=== PATIENT | female | born 1960 | race Caucasian/White ===

== ENCOUNTER 2016-12-27 18:59 | Emergency (ER) | payer BC ==
[2016-12-27 19:14] VITALS: BP 115/67
--- NOTE | 2016-12-27 19:19 | UC ---
Eye Complaint HPI - HPI Summary HPI Summary: 56 YEAR OLD FEMALE PRESENTS WITH RIGHT EYE PAIN/SWELLING/LESION. - History of Current Complaint Chief Complaint: UCEye Stated Complaint: EYE COMPLAINT Time Seen by Provider: 12/27/16 19:18 Hx Obtained From: Patient Onset/Duration: Sudden Onset Timing: Constant Severity Initially: Moderate Severity Currently: Moderate Pain Scale Used: 0-10 Numeric - 5 Location of Injury: Conjunctiva, Eye Lid (upper) - RIGHT UPPER LID GPC Aggravating Factor(s): Light Alleviating Factor(s): Nothing - Allergies/Home Medications Allergies/Adverse Reactions: Allergies Allergy/AdvReac Type Severity Reaction Status Date / Time No Known Allergies Allergy Verified 12/27/16 19:14 Home Medications: Home Medications Propranolol TAB* [Inderal TAB*] 60 mg PO DAILY 12/27/16 [History Confirmed 12/27] PMH/Surg Hx/FS Hx/Imm Hx Previously Healthy: Yes - Surgical History Surgical History: Yes Surgery Procedure, Year, and Place: appy,d-n-c,ectopic - Social History Alcohol Use: Weekly Alcohol Amount: 5 out 0f 7 days Substance Use Type: None Smoking Status (MU): Never Smoked Tobacco - Immunization History Most Recent Influenza Vaccination: none Review of Systems Constitutional: Negative Skin: Negative Eyes: Other - RIGHT EYE GPC ENT: Negative Respiratory: Negative Cardiovascular: Negative Gastrointestinal: Negative Genitourinary: Negative Motor: Negative Neurovascular: Negative Musculoskeletal: Negative Neurological: Negative Psychological: Negative All Other Systems Reviewed And Are Negative: Yes Physical Exam Triage Information Reviewed: Yes Appearance: Well-Appearing Vital Signs: Initial Vital Signs Temp 36.5 C 12/27/16 19:08 Pulse 62 12/27/16 19:08 Resp 16 12/27/16 19:08 BP 115/67 12/27/16 19:08 Pulse Ox 100 12/27/16 19:08 Eyes: Positive: Other: - RIGHT EYE GPC ENT Exam: Normal Dental Exam: Normal Neck exam: Normal Neck: Positive: 1 Respiratory Exam: Normal Cardiovascular Exam: Normal Abdominal Exam: Normal Musculoskeletal Exam: Normal Neurological Exam: Normal Psychological Exam: Normal Skin Exam: Normal Eye Complaint Course/Dx - Differential Dx/Diagnosis Provider Diagnoses: RIGHT EYE GPC Discharge - Discharge Plan Condition: Stable Disposition: HOME Prescriptions: Polymyx/Trimethoprim OPTH* [Polytrim OPHTH*] 1 drop RIGHT EYE Q6H #1 btl Patient Education Materials: Stye (ED), Conjunctivitis (ED) Referrals: Annalisa Bear MD [Medical Doctor] - Vito Amin MD [Medical Doctor] -
== END 2016-12-27 19:30 | disposition home or self-care (01) ==
LOC: UCEAST 18:59
DX: H10 Conjunctivitis (principal)
CPT/HCPCS: 99212; G0463

== ENCOUNTER 2018-09-26 07:41 | Emergency (ER) | payer OTHER ==
--- OUTSIDE RECORDS SUMMARY | 2018-09-26 07:48 | XMS REPORT | Continuity of Care Document ---
:1960 External Reference #:[id number] Author Name Gavino Ovalle Care Team Providers Name Role Phone Annalisa Bear MD Primary Care Physician Unavailable Payers Date Identification Numbers Payment Provider Subscriber Policy Number: [id number] [employer] Student [employer] Herlinda Szymanski Group Number: [id number] [id number] PayID: [id number] [place] [address] Problems Active Problems Provider Date Migraine Maude Cano N.P. 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 ETOH Use Currently consumes 1 - 2 per week alcohol Tobacco Use Start: Unknown Patient has never smoked Recreational Drug Use Denies Drug Use Smoking Status Reviewed: 09/25/18 Patient has never smoked Exercise Type/Frequency Exercises regularly 2 - 4 days weekly Allergies, Adverse Reactions, Alerts Description No Known Drug Allergies Medications Active Medications SIG Qnty Indications Ordering Date Provider Azelastine HCL one drop in each 6ml H10.10 Claire Valera MD 09/25/2018 (Ophthalmic) eye bid prn 0.05% Solution Amitriptyline HCL 1 pill by mouth 30tabs G43.909 iVto Aguilar, 01/12/2018 25mg at bedtime M.D. Tablets Atrovent use 2 sprays in 30units J31.0 Maude Jerome, 07/24/2016 0.03% Solution each nostril two N.P. times daily Fiorinal one to two by 60caps G43.909 Maude Jerome, 03/31/2012 50-325-40mg mouth every 4 to N.P. Capsules 6 hours as needed headache MDD 6 Valacyclovir HCL 1 by mouth every 90tabs Claire Valera MD 500mg day Tablets History Medications Medrol take as directed 21tabs Goran Marcus, 12/10/2017 - 4mg Tablets per dosepak M.D. 01/11/2018 instructions Propranolol HCL ER take one capsule by 30caps G43.90 Goran Marcus, 09/2017 - mouth every morning 9 M.D. 01/12/2018 60mg Caps ER 24HR Propranolol HCL ER take one capsule at 30caps G43.90 Raji Coffman MD 08/2017 - night 9 10/17/2017 80mg Caps ER 24HR Amoxicillin/Clavula 1 tab by mouth 20tabs J01.90 Rosalinda Srinivasan, 2016 - gabriel Potassium twice a day M.D. 03/22/2017 875-125mg Tablets Valacyclovir HCL 2 tabs twice a day 10tabs N76.6 Maude Jerome, 2016 - x 1 day as needed. N.P. 09/24/2018 1gm Tablets start at the first sign of outbreak Propranolol HCL one daily 30tabs G43.90 Maude Cano, 06/11/2016 - 9 N.P. 07/17/2017 60mg Tablets Azithromycin two tabs day one, 6tabs Annalisa Bear, 08/09/2014 - 250mg one daily till gone M.D. 08/19/2014 Tablets Hydroxyzine HCL One tablet PO q 6-8 30tabs August Bah NP 11/22/2013 - hrs prn for 09/12/2014 25mg Tablets pruritis. Medrol (Rey) Per package 21tabs August Bah NP 11/22/2013 - 4mg instructions, for 11/29/2013 Tablets poison oak Fluocinonide Apply a thin layer 30gm 692.6 August Bah NP 11/18/2013 - 0.05% to affected areas 09/12/2014 Cream tid-qid, do not use longer than 7 days. Metaxalone take 1 tablet 3 60tabs 723.1 Maude Cano, 07/05/2013 - 800mg times a day as N.P. 06/26/2015 Tablets needed Anucort-HC insert suppository 30units 455.3 Maude Cano, 01/20/2013 - 25mg in rectum twice a N.P. 02/03/2013 Suppository day as needed Imitrex one tablet as 12tabs 346.90 Maude Cano, 03/31/2012 - 50mg needed for headache N.P. 01/20/2013 Tablets Trazodone HCL 1 tablet at bedtime 30tabs 780.52 Catherine Celia, 08/14/2010 - 50mg as needed M.D., FACP 08/24/2010 Tablets Lunesta one tablet at 30tabs Maude Jerome, 04/17/2010 - 2mg Tablets bedtime as needed N.P. 07/05/2013 Benadryl 1 po at hs 30caps Unknown - 25mg 07/05/2013 Capsules Advil prn 100caps Unknown - 200mg 01/20/2013 Capsules Nutritional Supps. Unknown - 06/26/2015 Advil as needed Unknown - 200mg Tablets 06/11/2016 Immunizations CPT Code Status Date Vaccine Lot # [id number] Given 03/31/2012 Fluvirin Im [id number] And Older [id number] Given 10/29/2010 Tdap - Tetanus/Diptheria/Acellular Pertussis [id number] Vital Signs Date Vital Result Comment 09/25/2018 10:49am Height 66 inches 5'6" Weight 119.38 lb Heart Rate 70 /min BP Systolic 116 mmHg BP Diastolic 70 mmHg Body Temperature 97.5 F O2 % BldC Oximetry 94 % BMI (Body Mass Index) 19.3 kg/m2 08/10/2018 11:03am Height 66 inches 5'6" Weight 120.12 lb Heart Rate 79 /min BP Systolic 103 mmHg BP Diastolic 62 mmHg Body Temperature 96.7 F O2 % BldC Oximetry 98 % BMI (Body Mass Index) 19.4 kg/m2 03/26/2018 8:03am Height 66 inches 5'6" Weight 121.25 lb Heart Rate 70 /min BP Systolic 122 mmHg BP Diastolic 80 mmHg BMI (Body Mass Index) 19.6 kg/m2 01/12/2018 8:17am Height 66 inches 5'6" Weight 116.00 lb Heart Rate 68 /min BP Systolic Sitting 106 mmHg BP Diastolic Sitting 60 mmHg Respiratory Rate 16 /min BMI (Body Mass Index) 18.7 kg/m2 10/17/2017 8:23am Height 66 inches 5'6" Weight 120.00 lb Heart Rate 64 /min BP Systolic Sitting 98 mmHg BP Diastolic Sitting 60 mmHg Respiratory Rate 16 /min BMI (Body Mass Index) 19.4 kg/m2 07/17/2017 9:14am Height 66 inches 5'6" Weight 118.00 lb Heart Rate 60 /min BP Systolic Sitting 106 mmHg BP Diastolic Sitting 60 mmHg Respiratory Rate 16 /min BMI (Body Mass Index) 19.0 kg/m2 03/12/2017 11:58am Weight 124.00 lb Heart Rate 60 /min BP Systolic Sitting 98 mmHg BP Diastolic Sitting 58 mmHg Body Temperature 97.8 F O2 % BldC Oximetry 99 % 12/02/2016 3:21pm Height 66 inches 5'6" Weight 116.75 lb Heart Rate 64 /min BP Systolic 90 mmHg BP Diastolic 40 mmHg Body Temperature 98.4 F O2 % BldC Oximetry 99 % BMI (Body Mass Index) 18.8 kg/m2 09/03/2016 8:56am Height 66 inches 5'6" Weight 115.00 lb Heart Rate 72 /min BP Systolic Sitting 98 mmHg BP Diastolic Sitting 62 mmHg Respiratory Rate 14 /min BMI (Body Mass Index) 18.6 kg/m2 07/24/2016 4:15pm Weight 115.00 lb Heart Rate 64 /min BP Systolic Sitting 100 mmHg BP Diastolic Sitting 64 mmHg Body Temperature 97.2 F O2 % BldC Oximetry 98 % 06/11/2016 1:21pm Weight 113.00 lb Heart Rate 56 /min BP Systolic Sitting 122 mmHg BP Diastolic Sitting 84 mmHg Body Temperature 97.5 F O2 % BldC Oximetry 99 % 06/26/2015 9:03am Weight 114.75 lb Heart Rate 70 /min BP Systolic Sitting 95 mmHg BP Diastolic Sitting 56 mmHg Body Temperature 97.4 F Pain Level 0 O2 % BldC Oximetry 99 % 10/11/2014 2:32pm Height 66 inches 5'6" Weight 117.25 lb Heart Rate 70 /min BP Systolic Sitting 107 mmHg BP Diastolic Sitting 71 mmHg BMI (Body Mass Index) 18.9 kg/m2 07/21/2014 10:35am Height 66 inches 5'6" Weight 115.00 lb Heart Rate 77 /min BP Systolic 99 mmHg BP Diastolic 74 mmHg Pain Level 2 BMI (Body Mass Index) 18.6 kg/m2 11/18/2013 9:06am Weight 115.00 lb Heart Rate 72 /min BP Systolic Sitting 110 mmHg BP Diastolic Sitting 60 mmHg Body Temperature 98.0 F 07/05/2013 4:28pm Weight 115.50 lb Heart Rate 74 /min BP Systolic Sitting 118 mmHg BP Diastolic Sitting 90 mmHg Body Temperature 97.2 F 01/20/2013 4:08pm Weight 116.00 lb Heart Rate 64 /min BP Systolic Sitting 100 mmHg BP Diastolic Sitting 58 mmHg 03/31/2012 8:44am Height 66.25 inches 5'6.25" Weight 113.00 lb Heart Rate 64 /min BP Systolic Sitting 90 mmHg BP Diastolic Sitting 64 mmHg BMI (Body Mass Index) 18.1 kg/m2 10/29/2010 9:00am Height 67.5 inches 5'7.50" Weight 127.00 lb Heart Rate 72 /min BP Systolic Sitting 104 mmHg BP Diastolic Sitting 60 mmHg BMI (Body Mass Index) 19.6 kg/m2 08/14/2010 11:07am Weight 122.00 lb Heart Rate 64 /min BP Systolic 104 mmHg BP Diastolic 64 mmHg 04/17/2010 3:44pm Weight 122.00 lb Heart Rate 68 /min BP Systolic 102 mmHg BP Diastolic 60 mmHg Body Temperature 98.5 F Results Test Date Facility Test Result H/L Range Note Laboratory test 08/10/2018 [facility] Cytology SEE RESULT [address] [place] [address] [phone] CBC Auto Diff 08/17/2016 [facility] White Blood 5.5 10^3/uL N 3.5-10.[address] [place] [address] [phone] Red Blood Count 4.24 10^6/uL N 4.0-5.4 Hemoglobin 13.1 g/dL N 12.0-16.0 Hematocrit 39 % N 35-47 Mean Corpuscular Volume 92 fL N 80-97 Mean Corpuscular Hemoglobin 31 pg N 27-31 Mean Corpuscular HGB Conc 34 g/dL N 31-36 Red Cell Distribution Width 14 % N 10.5-15 Platelet Count 249 10^3/uL N 150-450 Mean Platelet Volume 8 um3 N 7.4-10.4 Abs Neutrophils 3.1 10^3/uL N 1.5-7.7 Abs Lymphocytes 1.9 10^3/uL N 1.0-4.8 Abs Monocytes 0.4 10^3/uL N 0-0.8 Abs Eosinophils 0.1 10^3/uL N 0-0.6 Abs Basophils 0.1 10^3/uL N 0-0.2 Abs Nucleated RBC 0 10^3/uL N Granulocyte % 55.4 % N 38-83 Lymphocyte % 33.7 % N 25-47 Monocyte % 7.4 % N 1-9 Eosinophil % 1.6 % N 0-6 Basophil % 1.9 % N 0-2 Nucleated Red Blood Cells % 0.1 N Comp Metabolic Panel 08/17/2016 [facility] Sodium 132 mmol/L Low 133-145 [address] [place] [address] [phone] Potassium 4.3 mmol/L N 3.5-5.0 Chloride 97 mmol/L Low 101-111 Co2 Carbon Dioxide 29 mmol/L N 22-32 Anion Gap 6 mmol/L N 2-11 Glucose 102 mg/dL High 70-100 Blood Urea Nitrogen 11 mg/dL N 6-24 Creatinine 0.92 mg/dL N 0.51-0.95 BUN/Creatinine Ratio 12.0 N 8-20 Calcium 9.9 mg/dL N 8.6-10.3 Total Protein 7.4 g/dL N 6.4-8.9 Albumin 4.8 g/dL N 3.2-5.2 Globulin 2.6 g/dL N 2-4 Albumin/Globulin Ratio 1.8 N 1-3 Total Bilirubin 0.50 mg/dL N 0.2-1.0 Alkaline Phosphatase 45 U/L N 34-104 Alt 10 U/L N 7-52 Ast 21 U/L N 13-39 Egfr Non- 63.1 N >60 Egfr 81.2 N >60 2 Laboratory test 08/17/2016 [facility] Lyme Disease Negative N Negative 3 finding [address] [place] [address] [phone] Ferritin 100.7 ng/mL N 11-307 Magnesium 2.2 mg/dL N 1.9-2.7 TSH (Thyroid Stim Horm) 0.51 mcIU/mL N 0.34-5.60 Thyroglobulin AB <1.8 IU/mL N <4.0 4 Thyroperoxidase AB 1.03 IU/mL N <9 Vitamin B12 309 pg/mL N 180-914 5 Comp Metabolic Panel 05/12/2015 [facility] Sodium 135 mmol/L N 133-[address] [place] [address] [phone] Potassium 4.1 mmol/L N 3.5-5.0 Chloride 103 mmol/L N 101-111 Co2 Carbon Dioxide 27 mmol/L N 22-32 Anion Gap 5 mmol/L N 2-11 Glucose 100 mg/dL N 70-100 Blood Urea Nitrogen 14 mg/dL N 6-24 Creatinine 0.86 mg/dL N 0.51-0.95 BUN/Creatinine Ratio 16.3 N 8-20 Calcium 9.2 mg/dL N 8.6-10.3 Total Protein 6.1 g/dL Low 6.4-8.9 Albumin 4.4 g/dL N 3.2-5.2 Globulin 1.7 g/dL Low 2-4 Albumin/Globulin Ratio 2.6 N 1-3 Total Bilirubin 0.50 mg/dL N 0.2-1.0 Alkaline Phosphatase 37 U/L N 34-104 Alt 11 U/L N 7-52 Ast 22 U/L N 13-39 Egfr Non- 68.5 N >60 Egfr 88.1 N >60 6 Lipid Profile 05/12/2015 [facility] Triglycerides 40 mg/dL N 7 (Trig/Chol/HDL) [address] [place] [address] [phone] Cholesterol 198 mg/dL N 8 HDL Cholesterol 72.1 mg/dL N 9 LDL Cholesterol 118 mg/dL N 10 Laboratory test 01/06/2014 [facility] TSH (Thyroid 0.48 N 0.34 -5.[address] Stimulating Horm) IU/[place] [address] [phone] Lipid Profile 01/06/2014 [facility] Triglycerides 63 mg/dL N 11 (Trig/Chol/HDL) [address] [place] [address] [phone] Cholesterol 215 mg/dL N 12 HDL Cholesterol 74.4 mg/dL N 13 LDL Cholesterol 128 mg/dL N 14 Comp Metabolic Panel 01/06/2014 [facility] Sodium 136 mmol/L N 133-145 [address] [place] [address] [phone] Potassium 4.3 mmol/L N 3.7-5.6 Chloride 102 mmol/L N 101-111 Co2 Carbon Dioxide 31 mmol/L N 22-32 Anion Gap 3 mmol/L N 2-11 Glucose 86 mg/dL N 70-100 Blood Urea Nitrogen 12 mg/dL N 6-24 Creatinine 0.99 mg/dL High 0.51-0.95 BUN/Creatinine Ratio 12.1 N 8-20 Calcium 9.8 mg/dL N 8.6-10.3 Total Protein 7.0 g/dL N 6.4-8.9 Albumin 4.7 g/dL N 3.2-5.2 Globulin 2.3 g/dL N 2-4 Albumin/Globulin Ratio 2.0 N 1-3 Total Bilirubin 0.70 mg/dL N 0.2-1.0 Alkaline Phosphatase 36 U/L N 34-104 Alt 12 U/L N 7-52 Ast 20 U/L N 13-39 Egfr Non- 58.7 N >60 Egfr 75.5 N >60 15 Ua Routine 03/31/2012 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 Inspector In House Ua Specific [place] 1.005 Ua PH 7.5 Ua Color orange Ua Appera clear Ua WBC neg Ua Protein trace Ua Glucose neg Ua Ketones trace Ua Bilirubin small Ua Urobilinogen neg Ua Nitrite neg Ua Occult Blood neg Laboratory test 11/02/2010 [facility] TSH 0.65 MIU/ML 0.34- 5.60 finding [address] [place] [address] [phone] Lipid Profile 11/02/2010 [facility] Triglyceride 72 mg/dL 40- 200 (Trig/Chol/HDL) [address] [place] [address] [phone] Cholesterol 215 mg/dL High Less Than 200 16 High Density Lipoprotein 69 mg/dL High 40-60 17 Cholesterol/HDL Ratio 3.12 AVERAGE 1-4.44 Low Density Lipoprotein 132 mg/dL High Less Than 100 18 Comp Metabolic Panel 11/02/2010 [facility] Sodium 136 mmol/L 135-[address] [place] [address] [phone] Potassium 4.0 mmol/L 3.5-5.0 Chloride 101 mmol/L 101-111 Co2 (Carbon Dioxide) 29.0 mmol/L 22-32 Anion Gap 6.0 mmol/L 2-11 19 Glucose 93 mg/dL 70-100 BUN 5 mg/dL Low 6-24 Creatinine 0.90 mg/dL 0.50-1.40 One Over Creatinine 1.10 BUN/Creatinine Ratio 5.6 Low 8-20 Calcium 9.3 mg/dL 8.1-9.9 Total Protein 7.2 GM/DL 6.2-8.1 Albumin 4.4 GM/DL 3.6-5.4 Globulin 2.8 GM/DL 2-4 Albumin/Globulin Ratio 1.6 1-3 Bilirubin Total 0.9 mg/dL 0.4-1.5 20 Alkaline Phosphatase 48 U/L 30-110 Alt (SGPT) 9 U/L Low 14-54 Ast (Sgot) 21 U/L 12-42 eGFR Non- 66.3 > 60 eGFR 85.2 > 60 21 Laboratory test 10/29/2010 [facility] Cytology <SEE [address] NOTE> [place] [address] [phone] 1 SEE RESULT BELOW Name: ANGELICA CHAN : [address]: Maude Cano CUSTOMER SALES ADVISOR Acct: [id number] Unit: [id number] AGE: 58 Location: LABRSP Re08/10/18 SEX: F Status: REG REF SPEC: [id number] AKIN: 08/10/18132 [facility] DR: Maude Cano CUSTOMER SALES ADVISOR REQ: [id number] RECD: 08/10/18 STATUS: SOUT _ ORDERED: TP IMAGE ANALYS, HPV/Thin Prep, HPV 16/18 GENE COMMENTS: [id number] Negative for Intraepithelial lesion or Malignancy Date Time Test Result Flag (u) Normal Range 08/10/18 1237 @ HPV RNA RFLX GE Negative Negative @ @ The high-risk HPV types detected by the assay include: 16, @ 18, 31, 33, 35, 39, 45, 51, 52, 56, 58, 59, 66, and 68. A. Ectocervical/Endocervical Specimen Adequacy: Satisfactory of evaluation Transformation zone component cannot be definitely identified due to presence of atrophy or other hormonal changes Patient Information: HPV: High risk HPV RNA testing regardless of pap results. HPV 16/18 Genotype Reflex Actual Specimen Date: 08/10/18 LMP If Unknown: age 58 Spec Date if unknown: 2010 ?: N Post Menopausal?: Y Hysterectomy?: N Previous Abnormal Pap Smears?:N Signed by and Reported on: JESSE Pienda(ASCP) 1540 This Pap test was evaluated with the assistance of the SensorionPrep Test Imaging System. Due to cytologic findings at the edi specialist microscope, comprehensive manual rescreening by a Water Ski Assembler may be required. The Pap Smear is a screening test designed to aid in the detection of premalignant and malignant conditions of the uterine cervix. It is not a diagnostic procedure and should not be used as the sole means of detecting cervical cancer. Both false- positive and false- negative reports do occur. Depending on your risk status, a Pap smear should be obtained and evaluated every 1-3 years. END OF REPORT DEPARTMENT OF PATHOLOGY, [address] [place] [address] Hector Mims M.D. Director [facility] # [id number] 2 Because ethnic data is not always readily available, this report includes an eGFR for both -Americans and non- Americans. The National Kidney Disease Education Program (NKDEP) does not endorse the use of the MDRD equation for patients that are not between the ages of 18 and 70, are , have extremes of body size, muscle mass, or nutritional status, or are non- or non-. According to the National Kidney Foundation, irrespective of diagnosis, the stage of the disease is based on the level of kidney function: Stage Description GFR(mL/min/1.73 m(2)) 1 Kidney damage with normal or decreased GFR 90 2 Kidney damage with mild decrease in GFR 60-89 3 Moderate decrease in GFR 30-59 4 Severe decrease in GFR 15-29 5 Kidney failure <15 (or dialysis) 3 Serologic response to B. burgdorferi infection is not detected, but cannot rule out early infection during which low or undetectable antibody levels to B. burgdorferi may be present. If clinically indicated, a new serum specimen should be submitted in 7-14 days. Test Performed by: [facility] - [address] [address] 4 ADDITIONAL INFORMATION The thyroglobulin antibody testing method is an immunoenzymatic assay manufactured by [employer]. and performed on the EdsbyI 800. Values obtained from different assay methods or kits may be different and cannot be used interchangeably. The results cannot be interpreted as absolute evidence for the presence or absence of malignant disease. Test Performed by: [facility] - [address] [address] 5 Normal Range 180 to 914 Indeterminate Range 145 to 180 Deficient Range <145 6 Because ethnic data is not always readily available, this report includes an eGFR for both -Americans and non- Americans. The National Kidney Disease Education Program (NKDEP) does not endorse the use of the MDRD equation for patients that are not between the ages of 18 and 70, are , have extremes of body size, muscle mass, or nutritional status, or are non- or non-. According to the National Kidney Foundation, irrespective of diagnosis, the stage of the disease is based on the level of kidney function: Stage Description GFR(mL/min/1.73 m(2)) 1 Kidney damage with normal or decreased GFR 90 2 Kidney damage with mild decrease in GFR 60-89 3 Moderate decrease in GFR 30-59 4 Severe decrease in GFR 15-29 5 Kidney failure <15 (or dialysis) 7 Desirable <150 Borderline high 150-199 High 200-499 Very High >500 8 Desirable <200 Borderline high 200-239 High >239 9 Low <40 Desirable: 40-60 High: >60 10 Desirable: <100 mg/dL Near Optimal: 100-129 mg/dL Borderline High: 130-159 mg/dL High: 160-189 mg/dL Very High: >189 mg/dL 11 Desirable <150 Borderline high 150-199 High 200-499 Very High >500 12 Desirable <200 Borderline high 200-239 High >239 13 Low <40 Desirable: 40-60 High: >60 14 Desirable <100 Near Optimal 100-129 Borderline high 130-159 High 160-189 Very High >189 15 Because ethnic data is not always readily available, this report includes an eGFR for both -Americans and non- Americans. The National Kidney Disease Education Program (NKDEP) does not endorse the use of the MDRD equation for patients that are not between the ages of 18 and 70, are , have extremes of body size, muscle mass, or nutritional status, or are non- or non-. According to the National Kidney Foundation, irrespective of diagnosis, the stage of the disease is based on the level of kidney function: Stage Description GFR(mL/min/1.73 m(2)) 1 Kidney damage with normal or decreased GFR 90 2 Kidney damage with mild decrease in GFR 60-89 3 Moderate decrease in GFR 30-59 4 Severe decrease in GFR 15-29 5 Kidney failure <15 (or dialysis) 16 CHOLESTEROL INTERPRETATION: Desirable: Less than 200 MG/DL Borderline-High Risk: 200-239 MG/DL High-Risk: 240 MG/DL and over 17 HDL INTERPRETATION: Undesirable: High Risk: Less than 40 MG/DL Desirable: Low Risk: Greater than 60 MG/DL 18 LDL INTERPRETATION: Low Risk Optimal Level: LDL Less than 100 MG/DL Near or Above Optimal: LDL 100-129 MG/DL Borderline High Risk: LDL 130-159 MG/DL High Risk: LDL 160-189 MG/DL Very High Risk: LDL Greater than 189 MG/DL 19 Anion gap measurement may be of limited value in the presence of any alkalosis, especially in a combined acid base disorder. . 20 A metabolite of Naproxen, O-desmethylnaproxen, has been shown to interfere with the Jendrassik-Thendara method for measuring total bilirubin. Samples from patients who have taken Naproxen have shown spurious elevation in total bilirubin levels. 21 Because ethnic data is not always readily available, this report includes an eGFR for both -Americans and non- Americans. The National Kidney Disease Education Program (NKDEP) does not endorse the use of the MDRD equation for patients that are not between the ages of 18 and 70, are , have extremes of body size, muscle mass, or nutritional status, or are non- or non-. According to the National Kidney Foundation, irrespective of diagnosis, the stage of the disease is based on the level of kidney function: Stage Description GFR(mL/min/1.73 m(2)) 1 Kidney damage with normal or decreased GFR 90 2 Kidney damage with mild decrease in GFR 60-89 3 Moderate decrease in GFR 30-59 4 Severe decrease in GFR 15-29 5 Kidney failure <15 (or dialysis) 22 ---- RUN DATE: 10/30/10 [facility] NMI LIVE PAGE 1 RUN TIME: 1433 Specimen Inquiry RUN USER: INTERFACE -- Name: ANGELICA CHAN Accsebastian#: [id number] Status: REG REF Re10/29/10 Age/Sex: 50/F Unit#: [id number] Location: [facility] : 60 -- Specimen: [id number] SOUT Spec Date: 10/29/[address]: Maude lerma [facility] Spec Type: CYTOLOGY Received: 10/30/10 Copies to: SOURCE ECTOCERVICAL/ENDOCERVICAL Thin Prep with Reflex HPV Test PATIENT INFORMATION ACTUAL COLLECTION DATE: 10/29/10 ? No POST MENOPAUSAL? No HYSTERECTOMY? No PREVIOUS ABNORMAL PAP SMEARS No LAST MENSTRUAL PERIOD: 10/21/10 ADEQUACY OF SPECIMEN Satisfactory for evaluation * Transformation zone component identified * DIAGNOSIS NEGATIVE FOR INTRAEPITHELIAL LESION OR MALIGNANCY * This Pap test was evaluated with the assistance of the SensorionPrep Pap Test Imaging System. The Pap Smear is a screening test designed to aid in the detection of premalign ant and malignant conditions of the uterine cervix. It is not a diagnostic procedure a nd should not be used as the sole means of detecting cervical cancer. Both false- positiv e and false-negative reports do occur. Depending on your risk status, a Pap smear kwame uld be obtained and evaluated every one to three years. Initial evaluation performed by Ian WILLIS([facility]) 10/30/10 Final Interpretation electronically signed by: Ian WILLIS([facility]) 10/30/10 1433 -- -- DEPARTMENT OF PATHOLOGY, [address] [place] [address] [facility] Permit #[id number] Hector Mims M.D. Director Carlos Dunn M.D. Rip Saw Operator Dir andrea -- Procedures Date Code Description Status 08/19/2018 [id number] Mammogram Completed 06/20/2017 [id number] Mammogram Completed 06/14/2016 [id number] Mammogram Completed 10/04/2015 [id number] Colonoscopy Completed 05/12/2015 [id number] Mammogram Completed 01/06/2014 [id number] Mammogram Completed 11/02/2010 [id number] Mammogram Completed 05/30/2010 [id number] Colonoscopy Completed 08/29/2009 [id number] Mammogram Completed Encounters Type Date Location Provider Dx Diagnosis Office Visit 08/10/2018 [facility] Internal Maude Cano, Z00.00 Encntr for general 11:00a Medicine - [facility] N.P. adult medical exam w/o abnormal findings Z12.31 Encntr screen mammogram for malignant neoplasm of breast G43.909 Migraine, unsp, not intractable, without status migrainosus E78.5 Hyperlipidemia, unspecified Z11.51 Encounter for screening for human papillomavirus (HPV) Office Visit 03/26/2018 Kathleen Goran G43.909 Migraine, unsp, 8:00a Ruddy Marcus M.D. not intractable, [facility] without status migrainosus Office Visit 01/12/2018 [place] Gor[place] G43.909 Migraine, unsp, 8:15a Ruddy Marcus M.D. not intractable, [facility] without status migrainosus Office Visit 10/17/2017 [place] Mo[place] G43.909 Migraine, unsp, 8:15a Neurologic Kera Marcus not intractable, [facility] without status migrainosus Office Visit 07/17/2017 Kathleen Zimmer G43.909 Migraine, unsp, 9:30a Neurologic Kera Marcus not intractable, [facility] without status migrainosus Office Visit 03/12/2017 [facility] Rosalinda Srinivasan, J01.90 Acute sinusitis, 12:10p Internal MSade unspecified Medicine-[place] Office Visit 12/02/2016 [facility] [facility] Annalisa N76.6 Ulceration of 3:00p Medicine - Jefferson Bear M.D. vulva Office Visit 09/03/2016 [place] Terri Caceres G43.109 Migraine with 9:00a Neurologic Kera Kaye aura, not [facility] intractable, w/o status migrainosus R29.2 Abnormal reflex Office Visit 07/24/2016 4:20p [facility] Internal Maude Cano G43.909 Migraine, unsp, Medicine - N.P. not intractable, Ccmob without status migrainosus R53.83 Other fatigue J31.0 Chronic rhinitis Office Visit 06/11/2016 1:20p [facility] Internal Maude Cano G43.909 Migraine, unsp, Medicine - N.P. not intractable, Ccmob without status migrainosus Office Visit 06/26/2015 9:00a [facility] Internal Maude Cano, M67.441 Ganglion, right Medicine - N.P. hand Ccmob Z12.11 Encounter for screening for malignant neoplasm of colon Office Visit 10/11/2014 2:20p [facility] Internal Maude Cano, V70.0 Examination Medicine - N.P. General Medical Ccmob Routine AT Health Care Facility V76.10 Screening For Malignant Neoplasm Breast 272.4 Hyperlipidemia Other Unspec 346.90 Migraine Unspec W/O Intractable W/O Status Migrainosus 724.70 Coccyx Disorder Unspec 724.5 Backache Unspec Office Visit 07/21/2014 [facility] Yuliya 727.06 Tenosynovitis Foot 10:00a [facility] Office Visit 11/18/2013 [facility] Internal August Bah NP 692.6 Dermatitis Contact 9:00a Medicine - Ccmob Due To Plants (Except Food) Office Visit 07/05/2013 [facility] Internal Maude Varn, 723.1 Cervicalgia 4:20p Medicine - Ccmob N.P. Office Visit 01/20/2013 [facility] Internal Maude Varn, 455.3 Hemorrhoids 4:00p Medicine - Ccmob N.P. External W/O Complication Office Visit 03/31/2012 [facility] Internal Maude Varn, V70.0 Examination General 8:40a Medicine - Ccmob N.P. 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 Unspecified Office Visit 04/17/2010 DO Not Use Maude Varn, 787.91 Diarrhea 3:30p 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 N.P. 780.52 Insomnia Unspecified Office Visit 09/07/2008 DO Not Use Maude Varn, 372.72 Conjunctival 3:30p 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 N[facility] Hemorrhage 784.0 Headache Office Visit 05/06/2007 11:15a DO Not Use Maude Varn, 380.10 Otitis Externa 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 Infective Unspec 382.9 Otitis Media Unspec Office Visit 06/09/2006 1:15p DO Not Use Maude Varn, 466.0 Bronchitis Acute 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 N[facility] Plan of Treatment Future Appointment(s):11/09/2018 12:00 pm - Goran Marcus M.D. at [place] [facility]09/25/2018 - Claire Valera MDH10.10 Acute atopic conjunctivitis, unspecified eyeNew Medication:Azelastine HCL (Ophthalmic) 0.05 % - one drop in each eye bid prn
[2018-09-26 07:50] VITALS: BP 102/64
[2018-09-26] MEDS ORDERED: Rabies VIRUS VACCINE (Imovax)* 2.5 UNIT/ML 1 ML IM ONE (07:50)
--- NOTE | 2018-09-26 07:51 | UC ---
General HPI - HPI Summary HPI Summary: 58 yo female presents for rabies series. She tells me that she awoke to a bat in her bedroom on September 08. The bat was captured and tested and returned inconclusive for rabies. Pt was advised to undergo the rabies vaccination series. She denies a known bite. She has no symptoms at this time - History of Current Complaint Chief Complaint: UCGeneralIllness Stated Complaint: RABIES VAC Time Seen by Provider: 09/26/18 07:50 Hx Obtained From: Patient Onset/Duration: Sudden Onset Current Severity: None Pain Intensity: 0 - Allergy/Home Medications Allergies/Adverse Reactions: Allergies Allergy/AdvReac Type Severity Reaction Status Date / Time No Known Allergies Allergy Verified 09/26/18 07:50 Home Medications: Home Medications Amitriptyline TAB* [Elavil TAB*] 25 mg PO BEDTIME 09/26/18 [History Confirmed ] Polymyx/Trimethoprim OPTH* [Polytrim OPHTH*] 1 drop BOTH EYES Q3H 09/26/18 [ History Confirmed 09/26/18] PMH/Surg Hx/FS Hx/Imm Hx Psychological History: Bipolar Disorder - Surgical History Surgical History: Yes Surgery Procedure, Year, and Place: appy,d-n-c,ectopic - Family History Known Family History: Positive: None - Social History Occupation: Employed Full-time Lives: With Family Alcohol Use: Weekly Alcohol Amount: 5 out 0f 7 days Substance Use Type: None Smoking Status (MU): Never Smoked Tobacco - Immunization History Most Recent Influenza Vaccination: none Review of Systems All Other Systems Reviewed And Are Negative: Yes Constitutional: Positive: Other - Bat in bedroom Skin: Positive: Negative Respiratory: Positive: Negative Cardiovascular: Positive: Negative Gastrointestinal: Positive: Negative Neurovascular: Positive: Negative Neurological: Positive: Negative Psychological: Positive: Negative Physical Exam - Summary Physical Exam Summary: GENERAL: NAD. WDWN. No pain distress. SKIN: No bite site appreciated. No streaking, bleeding, or drainage. NECK: Supple. Nontender. No lymphadenopathy. CHEST: No accessory muscle use. Breathing comfortably and in no distress. CV: Pulses intact. Cap refill <2seconds NEURO: Alert. PSYCH: Age appropriate behavior. Triage Information Reviewed: Yes Vital Signs: Initial Vital Signs Temp 98.3 F 09/26/18 07:47 Pulse 76 09/26/18 07:47 Resp 18 09/26/18 07:47 BP 102/64 09/26/18 07:47 Pulse Ox 100 09/26/18 07:47 Vital Signs Reviewed: Yes Course/Dx - Course Course Of Treatment: Pt unsure the date of her last tetanus, thus tdap was updated today. RIG and rabies vaccination given according to health department guidelines. - Diagnoses Provider Diagnosis: Contact with and suspected exposure to rabies Discharge - Sign-Out/Discharge Documenting (check all that apply): Patient Departure All imaging exams completed and their final reports reviewed: No Studies - Discharge Plan Condition: Stable Disposition: HOME Patient Education Materials: Rabies (ED), Rabies Vaccine (ED) Referrals: Maude Cano NP [Primary Care Provider] - Additional Instructions: If you develop a fever, shortness of breath, chest pain, new or worsening symptoms - please call your PCP or go to the ED immediately. - Billing Disposition and Condition Condition: STABLE Disposition: Home
[2018-09-26] MEDS ORDERED: Tetan/Diph/Pertus SYR(Tdap)* 0.5 ML SYR(BOOSTRIX) use SYR IM ONE (08:00)
[2018-09-26] MEDS ORDERED: Rabies Immune Globulin/PF 1ML* 1 ML/300 UNITS VIAL IM ONE (08:14)
== END 2018-09-26 09:00 | disposition home or self-care (01) ==
LOC: UCEAST 07:41
DX: Z20.3 Contact with and (suspected) exposure to rabies (principal); Z29.14 Encounter for prophylactic rabies immune globulin
CPT/HCPCS: 90375; 90471; 90472; 90715; 96372; 99211; G0463